=== PATIENT | female | born 1945 | race Two or more races ===

== ENCOUNTER 2022-09-18 08:23 | Emergency (ER) | payer OTHER ==
[~2022-09-18] VITALS: Ht 157.5 cm; Wt 63.5 kg
--- NOTE | 2022-09-18 08:30 | NUR ---
RECEIVED PT 77 YRS FEMALE came from home by mohsen S/P TRIP AND FALL LAST NIGHT c/p pain on lt hip 03/05 some difformity AWAKE AND ALERT respration spont and easy
--- NOTE | 2022-09-18 09:00 | NUR ---
DR. LARA AT BED SIDE TO PT
--- NOTE | 2022-09-18 09:02 | NUR ---
X RAY DONE AT BED SIDE
--- NOTE | 2022-09-18 09:30 | NUR ---
TO CT SCAN ON LT HIP
--- NOTE | 2022-09-18 10:07 | NUR ---
GAURI FROM IMAGING CALLED. REPORT RELAYED TO DR. LARA
--- NOTE | 2022-09-18 10:30 | NUR ---
blood drow and sent to lab
[2022-09-18 10:47] LABS: HEMATOCRIT 39 % (33-45); HEMOGLOBIN 12.9 g/dL (11.5-14.8); LYMPHOCYTES # (AUTO) 0.7 K/uL (0.8-4.8); LYMPHOCYTES % (AUTO) 6.1 % (20.0-44.0); MEAN CORPUSCULAR HGB CONC 33 g/dl (31.0-36.0); MEAN CORPUSCULAR VOLUME 100 fL (82-100); MONOCYTES # (AUTO) 0.9 K/uL (0.1-1.30); MONOCYTES % (AUTO) 7.9 % (2.0-12.0); NEUTROPHILS # (AUTO) 9.8 K/uL (1.8-8.9); PLATELET COUNT (AUTO) 326 K/uL (150-450); RED BLOOD CELL COUNT(AUTO) 3.87 MIL/uL (4.0-5.2); WHITE BLOOD COUNT (AUTO) 11.4 K/uL (4.3-11.0)
--- NOTE | 2022-09-18 10:51 | NUR ---
NABILA ALONSO SENT TO LAB
--- NOTE | 2022-09-18 11:07 | NUR ---
CALLED [facility] [phone] DR. JUAN A TSAI WILL CALL US BACK.
[2022-09-18 11:27] LABS: CALCIUM, SERUM 10.2 mg/dL (8.5-10.1); CREATININE 0.9 mg/dL (0.6-1.3); POTASSIUM 4.8 mmol/L (3.5-5.1)
[2022-09-18] MEDS ORDERED: ONDANSETRON HCL/PF 4 MG/2 ML VIAL IV ONE (12:00)
[2022-09-18] MEDS ORDERED: MORPHINE SULFATE INJ 2 MG/ML DISP.SYRIN IV ONE (12:00)
[2022-09-18] MEDS ORDERED: ONDANSETRON HCL/PF 4 MG/2 ML VIAL ONE (12:02)
[2022-09-18] MEDS ORDERED: MORPHINE SULFATE INJ 4 MG/ML DISP.SYRIN ONE (12:03)
--- NOTE | 2022-09-18 12:25 | NUR ---
Dale Nugent-ann ph. [phone] fx. [phone] asking for imaging reports to be faxed.
--- NOTE | 2022-09-18 12:32 | NUR ---
Faxed documents to [facility]
--- NOTE | 2022-09-18 13:48 | NUR ---
[facility] transport has been arranged. ETA 45 minutes, 1430 [facility] [phone] Accepting: MD. Cast
--- NOTE | 2022-09-18 14:33 | NUR ---
ATTMPET TO GIVE RERORT NO UNABLE TO GOt touch with charge nurse
--- NOTE | 2022-09-18 14:42 | NUR ---
HAND OFF TO ALEXIS Pearson V MANDREL MAKER PT TO [facility] MCLEAN
[2022-09-18 15:00] VITALS: BP 154/74
--- NOTE | 2022-09-18 15:07 | NUR ---
TRANSFER TO [facility] ED VS STABLE AWAKE AND ALERT
== END 2022-09-18 15:14 | disposition admitted as inpatient to this hospital (09) ==
LOC: ER 08:44
DX: S32.512A Fracture of superior rim of left pubis, initial encounter for closed fracture (principal); I10 Essential (primary) hypertension; W01.0XXA Fall on same level from slipping, tripping and stumbling without subsequent striking against object, initial encounter; Y93.89 Activity, other specified; Y92.89 Other specified places as the place of occurrence of the external cause; Y99.8 Other external cause status; Z20.822 Contact with and (suspected) exposure to COVID-19
CPT/HCPCS: 99285; 96374; 73700; 71045; 96375; 87426; 93005; 73503; 85025; 80048; 36415; 85730; J2270; J2405; C9803; 73502